=== PATIENT | male | born 1955 | race Caucasian/White ===

== ENCOUNTER → 2019-11-07 | Outpatient (CLI) | payer OTHER ==
[~2019-11-07] MED LIST: ASPIRIN325; GEMFIBROZIL 60600 MG PO; GLUCOPHAGE1000 MG PO; LISINOPRIL5 MG; NORCO 5-325 TA1 EACH PO
[2019-11-07 11:04] LABS: CREATININE 0.8 mg/dL (0.7-1.3)
== END ==
LOC: LABMALL 10:32 → CAT 10:32
PROVIDERS: Nurse Practitioner
DX: K80.20 Calculus of gallbladder without cholecystitis without obstruction (principal); K57.30 Diverticulosis of large intestine without perforation or abscess without bleeding; K40.90 Unilateral inguinal hernia, without obstruction or gangrene, not specified as recurrent; K43.9 Ventral hernia without obstruction or gangrene; M47.815 Spondylosis without myelopathy or radiculopathy, thoracolumbar region; M41.86 Other forms of scoliosis, lumbar region; M53.86 Other specified dorsopathies, lumbar region; I70.90 Unspecified atherosclerosis

== ENCOUNTER → 2020-04-29 | Outpatient (CLI) | payer OTHER | LOC: SJCVCIMAG 07:42 | PROVIDERS: ATTEND Internal Medicine | DX: I35.8 Other nonrheumatic aortic valve disorders (principal); I49.3 Ventricular premature depolarization; I10 Essential (primary) hypertension; I25.10 Atherosclerotic heart disease of native coronary artery without angina pectoris; I42.0 Dilated cardiomyopathy; I48.0 Paroxysmal atrial fibrillation; E78.5 Hyperlipidemia, unspecified; E11.9 Type 2 diabetes mellitus without complications; Z79.899 Other long term (current) drug therapy ==

== ENCOUNTER → 2021-05-16 | Outpatient (CLI) | payer OTHER | LOC: SJCVC 10:29 | PROVIDERS: ATTEND Internal Medicine | DX: R94.31 Abnormal electrocardiogram [ECG] [EKG] (principal); I25.10 Atherosclerotic heart disease of native coronary artery without angina pectoris; I42.0 Dilated cardiomyopathy; I48.0 Paroxysmal atrial fibrillation; I10 Essential (primary) hypertension; E78.5 Hyperlipidemia, unspecified; E11.9 Type 2 diabetes mellitus without complications; Z82.49 Family history of ischemic heart disease and other diseases of the circulatory system; Z88.8 Allergy status to other drugs, medicaments and biological substances; Z79.899 Other long term (current) drug therapy; Z79.84 Long term (current) use of oral hypoglycemic drugs ==

== ENCOUNTER → 2021-08-26 | Outpatient (CLI) | payer OTHER ==
[~2021-08-26] MED LIST changes: +CARVEDILOL25 MG PO; +DAILY VITAMIN1 EAC6 PO; +ELIQUIS5 MG PO; +GLUCOPHAGE XR750 MG PO; +JARDIANCE25 MG PO; -LISINOPRIL5 MG; +LISINOPRIL5 MG PO; +OCUVITE ADULT1 EAC2 PO; +PACERONE200 MG PO; +ROSUVASTATIN CA20 MG PO; +VITAMIN D350 MC3 PO
== END ==
LOC: LAB 09:50
PROVIDERS: ATTEND Student in an Organized Health Care Education/Training Program
DX: Z01.812 Encounter for preprocedural laboratory examination (principal); Z20.822 Contact with and (suspected) exposure to COVID-19

== ENCOUNTER → 2021-08-29 | Outpatient (CLI) | payer OTHER ==
[~2021-08-29] VITALS: Ht 185.4 cm; Wt 115.7 kg
--- NOTE | 2021-09-02 12:07 | PATH ---
[facility] [address] [place] [address] PATHOLOGY RPT PROCEDURE Name: DARIUSZ BENITO Room #: REG PIETRO Galeas.#: [id number] Admission: 08/29/21 Date of : 51 Discharge: Report #: [id number] Path Case #: [id number] [facility] Accession Number: [id number] . 01 Material submitted: . PART A: cecum - CECAL POLYP PART B: colon - TRANSVERSE POLYP. Modifiers: transverse PART C: sigmoid colon - SIGMOID POLYP . 02 Diagnosis: A. Cecal polyp, polypectomy: - Tubular adenoma. - Negative for high-grade dysplasia or malignancy. . B. Transverse colon polyp, polypectomy: - Tubular adenoma. - Negative for high-grade dysplasia or malignancy. . C. Sigmoid colon polyp, polypectomy: - Tubular adenoma. - Negative for high-grade dysplasia or malignancy. (ANK:jesus; 08/31/2021) QTP 08/31/2021 1129 Local . 02 Electronically signed: . Mari Stuart MD, Pathologist NPI- [id number] . 01 Gross description: . A. The specimen is received in formalin, labeled "Dariusz Benito, cecal polyp". Received is a segment of pale adame tissue measuring 0.6 cm in maximum dimensions. The specimen is submitted entirely in cassette A1. . B. The specimen is received in formalin, labeled "Dariusz Benito, transverse polyp". Received is a segment of pale adame to light brown tissue measuring 2.1 cm in maximum dimensions. Surgical margin is inked and the segment is bisected. The specimen is submitted entirely in cassette B1. . C. The specimen is received in formalin, labeled "Dariusz Benito, sigmoid polyp". Received are two segments of pale adame to light adame tissue measuring 0.5 and 1.0 cm in maximum dimensions. The specimen is submitted entirely in cassette C1. (CAA; 08/30/2021) QAC/QAC 08/30/2021 08 Local . 02 Pathologist provided ICD-10: D12.0, D12.3, D12.[address] [address] PATHOLOGY RPT PROCEDURE Name: DARIUSZ BENITO Room #: REG CLHolger Macias#: [id number] Admission: 08/29/21 Date of : 51 Discharge: Report #: [id number] Path Case #: [id number] . 02 CPT . [id number], [id number], [id number] Specimen Comment: A courtesy copy of this report has been sent to [phone] Specimen Comment: [id number] Specimen Comment: Report sent to / DR PAYNE Specimen Comment: A duplicate report has been generated due to demographic updates. Performed at: [address] [facility], [place] [id number] MD Piyush Lopez MD Phone: [phone] Performed at: [address] [facility] [id number] MD Mari Stuart MD Phone: [phone]
== END | disposition home or self-care (01) ==
LOC: GI 08-26 14:36
PROVIDERS: ATTEND Internal Medicine Gastroenterology
DX: Z12.11 Encounter for screening for malignant neoplasm of colon (principal); D12.0 Benign neoplasm of cecum; D12.3 Benign neoplasm of transverse colon; D12.5 Benign neoplasm of sigmoid colon; K57.30 Diverticulosis of large intestine without perforation or abscess without bleeding; I10 Essential (primary) hypertension; E78.5 Hyperlipidemia, unspecified; I48.91 Unspecified atrial fibrillation; E11.9 Type 2 diabetes mellitus without complications; Z96.653 Presence of artificial knee joint, bilateral; Z98.890 Other specified postprocedural states; Z87.891 Personal history of nicotine dependence; Z79.01 Long term (current) use of anticoagulants; Z79.899 Other long term (current) drug therapy; Z88.8 Allergy status to other drugs, medicaments and biological substances
CPT/HCPCS: 62110; 62900